=== PATIENT | female | born 1960 | race Caucasian/White ===

== ENCOUNTER 2019-03-03 01:20 | Emergency (ER) | payer MEDICAID, MEDICARE ==
[2019-03-03 02:21] LABS: #Eosinphils 0.1 thou/uL (0.0-0.7); #Lymphocytes 1.7 thou/uL (1.20-3.40); #Monocytes 0.8 thou/uL (0.11-0.59); #Neutrophils 15.9 thou/uL (1.40-6.50); %Basophils 0.3 % (0.0-1.0); %Eosinophils 0.7 % (0.0-10.0); %Lymphocytes 9.1 % (21.0-51.0); %Monocytes 4.1 % (0.0-10.0); %Neutrophils 85.8 % (42.0-75.0); Mean Corpuscular HGB CONC 35.2 g/dL (32.0-36.0); Mean Corpuscular Hemoglobin 30.7 pg (27.0-31.0); Mean Corpuscular Volume 87.2 fL (78.0-98.0); Mean Platelet Volume 6.6 fL (7.4-10.4); Platelet Count 265 thou/uL (130-400); RBC Distribution Width 12.3 % (11.5-14.5); Red Blood Cell (RBC) Count 3.91 mill/uL (4.20-5.40); White Blood Cell (WBC) Count 18.6 thou/uL (4.8-10.8)
[2019-03-03 02:41] LABS: ALT (SGPT) 11 U/L (8-55); AST (SGOT) 18 U/L (5-34); Alkaline Phosphatase 111 U/L (40-150); Anion Gap 16 mmol/L (10-20); BUN (Urea Nitrogen) 29 mg/dL (9.8-20.1); Bilirubin, Total 0.2 mg/dL (0.2-1.2); Calc. Creatinine Clearance 0 mL/min (70-130); Calcium 9.5 mg/dL (7.8-10.44); Carbon Dioxide 21 mmol/L (22-29); Chloride 107 mmol/L (98-107); Estimated GFR-MDRD 58; Glucose 138 mg/dL (70-105); Potassium 3.8 mmol/L (3.5-5.1); Sodium 140 mmol/L (136-145)
[2019-03-03] MEDS ORDERED: Ketorolac Tromethamine 30 MG/ML VIAL ONE (02:49)
[2019-03-03 04:28] LABS: Bilirubin Negative (Negative); Blood, Urine Negative (Negative); Clarity Clear (Clear); Glucose, Urine (Dipstick) Normal (Negative); Leukocyte Negative Leu/uL (Negative); Nitrite Negative (Negative); Protein, Urine (Dipstick) Negative (Neg-Trace); Urobilinogen Normal mg/dL (Less than 2)
--- NOTE | 2019-03-03 09:07 | CT ---
PRELIMINARY REPORT/[facility]/EMERGENCY AFTER HOURS PROCEDURE: EXAM: CT Lumbar Spine Without Contrast EXAM DATE/TIME: 03/03/2019 1:45 AM CLINICAL HISTORY: 58 years old, female; Low back pain; Patient HX: 58 y/o F presents to ED via EMS transport C/O sudden onset lower back pain. PT states that pain began suddenly while she was walking home from [place]. Denies known trauma, recent fall. Per EMS, vss en route. TECHNIQUE: Imaging protocol: Computed tomography images of the lumbar spine without contrast. COMPARISON: No relevant prior studies available. FINDINGS: Vertebrae: No fracture. Discs/Spinal canal/Neural foramina: No spinal stenosis. No neural foraminal narrowing. Kidneys and ureters: Nonobstructive nephrolithiasis left kidney. Soft tissues: Unremarkable. IMPRESSION: No fracture. Thank you for allowing us to participate in the care of your patient. Dictated and Authenticated by: Thad García MD 03/03/2019 1:56 AM Central Time ([place] & [place]) FINAL REPORT EMERGENCY AFTER HOURS LUMBAR SPINE CT SCAN WITHOUT IV CONTRAST: Date: 03/03/19 Time: 0146 hours HISTORY: Low back pain. FINDINGS/IMPRESSION: Bilateral nonobstructing renal calculi without evidence for acute obstruction. Generalized lumbar spondylosis. No fracture or dislocation. Report in agreement with preliminary report given on-call by Rolanda. POS: JARETT
--- NOTE | 2019-03-03 09:09 | CT ---
PRELIMINARY REPORT/[facility]/EMERGENCY AFTER HOURS PROCEDURE: EXAM: CT Head Without Contrast EXAM DATE/TIME: 03/03/2019 1:43 AM CLINICAL HISTORY: 58 years old, female; Altered mental status/memory loss; Patient HX: 58 y/o F presents to ED via EMS transport C/O sudden onset lower back pain. PT states that pain began suddenly while she was walking home from [facility]. Denies known trauma, recent fall. Per EMS, vss en route. TECHNIQUE: Imaging protocol: Computed tomography of the head without contrast. COMPARISON: No relevant prior studies available. FINDINGS: Brain: Volume loss and chronic small vessel ischemic change. Old infarction in the left basal ganglia . No brain edema. No intracranial hemorrhage. Ventricles: Normal. No ventriculomegaly. Bones/joints: Unremarkable. No acute fracture. Sinuses: Visualized sinuses are unremarkable. No fluid levels. Mastoid air cells: Visualized mastoid air cells are well aerated. Soft tissues: Unremarkable. IMPRESSION: No acute brain findings. Thank you for allowing us to participate in the care of your patient. Dictated and Authenticated by: Thad García MD 03/03/2019 1:52 AM Central Time ([place] & [place]) FINAL REPORT EMERGENCY AFTER HOURS BRAIN CT WITHOUT IV CONTRAST: Date: 03/03/19 Time: 0144 hours COMPARISON: 01/16/14. FINDINGS/IMPRESSION: Old left basal ganglia infarct changes. No mass or bleed. Report in agreement with preliminary report given on-call by Rolanda. POS: JARETT
== END 2019-03-03 04:56 | disposition home or self-care (01) ==
LOC: ERS 01:20
DX: M54.5 Low back pain (principal); Z86.73 Personal history of transient ischemic attack (TIA), and cerebral infarction without residual deficits; E78.00 Pure hypercholesterolemia, unspecified; I10 Essential (primary) hypertension; F41.9 Anxiety disorder, unspecified; F31.9 Bipolar disorder, unspecified
CPT/HCPCS: 36415; 70450; 72131; 80053; 81003; 85025; A4353; J1885

== ENCOUNTER 2019-03-03 15:01 | Emergency (ER) | payer MEDICARE, MEDICAID ==
[2019-03-03] MEDS ORDERED: Ketorolac Tromethamine 30 MG/ML VIAL ONE (16:41)
== END 2019-03-03 17:00 | disposition home or self-care (01) ==
LOC: ERS 15:01
DX: M54.5 Low back pain (principal); E78.5 Hyperlipidemia, unspecified; E78.00 Pure hypercholesterolemia, unspecified; I10 Essential (primary) hypertension; F41.9 Anxiety disorder, unspecified; F31.9 Bipolar disorder, unspecified; Z86.73 Personal history of transient ischemic attack (TIA), and cerebral infarction without residual deficits
CPT/HCPCS: 36415; 70450; 72131; 80053; 81003; 85025; 96372; 99283; A4353; J1885

== ENCOUNTER 2019-04-10 08:45 | Emergency (ER) | payer MEDICARE, MEDICAID ==
[2019-04-10] MEDS ORDERED: Ketorolac Tromethamine 30 MG/ML VIAL ONE (11:54)
--- NOTE | 2019-04-10 13:09 | RAD ---
PA AND LATERAL CHEST: Date: 04/10/19 HISTORY: Cough. FINDINGS: The heart size appears slightly enlarged. Mediastinal structures are unremarkable. Lungs are clear of infiltrates. There are arthritic changes of the spine. IMPRESSION: Minimal cardiomegaly. No acute findings. POS: [facility]
== END 2019-04-10 12:39 | disposition home or self-care (01) ==
LOC: ERS 08:45
DX: M53.3 Sacrococcygeal disorders, not elsewhere classified (principal); M25.561 Pain in right knee; E78.5 Hyperlipidemia, unspecified; E78.00 Pure hypercholesterolemia, unspecified; I10 Essential (primary) hypertension; F41.9 Anxiety disorder, unspecified; F31.9 Bipolar disorder, unspecified; Z79.899 Other long term (current) drug therapy; Z79.01 Long term (current) use of anticoagulants; Z86.73 Personal history of transient ischemic attack (TIA), and cerebral infarction without residual deficits
CPT/HCPCS: 71046; 96372; J1885

== ENCOUNTER 2019-04-16 14:55 | Emergency (ER) | payer MEDICAID, MEDICARE ==
[2019-04-16 15:52] LABS: Bilirubin Negative (Negative); Blood, Urine Negative (Negative); Clarity Clear (Clear); Glucose, Urine (Dipstick) Normal (Negative); Leukocyte 75 Leu/uL (Negative); Nitrite Negative (Negative); Protein, Urine (Dipstick) Negative (Neg-Trace); RBC/HPF 0-3 HPF (0-3); Squamous Epithelial 0-3 HPF (0-3); Urobilinogen 3 mg/dL (Less than 2)
[2019-04-16 15:53] LABS: Bacteria/HPF 1+ HPF (None Seen)
[2019-04-16] MEDS ORDERED: Acetaminophen 500 MG TAB ONE (16:02)
[2019-04-16 16:16] LABS: #Basophils 0.1 thou/uL (0.0-0.2); #Eosinphils 0.2 thou/uL (0.0-0.7); #Lymphocytes 2.3 thou/uL (1.20-3.40); #Monocytes 0.5 thou/uL (0.11-0.59); #Neutrophils 5.5 thou/uL (1.40-6.50); %Basophils 0.6 % (0.0-1.0); %Eosinophils 1.8 % (0.0-10.0); %Lymphocytes 26.9 % (21.0-51.0); %Neutrophils 64.7 % (42.0-75.0); Hemoglobin 11.4 g/dL (12.0-16.0); Mean Corpuscular HGB CONC 34.7 g/dL (32.0-36.0); Mean Corpuscular Hemoglobin 30.7 pg (27.0-31.0); Mean Corpuscular Volume 88.4 fL (78.0-98.0); Mean Platelet Volume 6.5 fL (7.4-10.4); Platelet Count 291 thou/uL (130-400); RBC Distribution Width 12.7 % (11.5-14.5); Red Blood Cell (RBC) Count 3.72 mill/uL (4.20-5.40); White Blood Cell (WBC) Count 8.5 thou/uL (4.8-10.8)
[2019-04-16 16:26] LABS: Amphetamine Not Detected (NotDetected); Barbiturates Screen Not Detected (NotDetected); Benzodiazepine Screen Not Detected (NotDetected); Cocaine Metabolite Screen Not Detected (NotDetected); Medtox Control Line Valid? VALID (VALID); Medtox Reader # READER 4; Methadone Not Detected (NotDetected); Methamphetamine Not Detected (NotDetected); Opiate Screen Not Detected (NotDetected); Oxycodone Screen Not Detected (NotDetected); Phencyclidine (PCP) Not Detected (NotDetected); THC/Cannabinoid Screen Not Detected (NotDetected); Tricyclic Screen Not Detected (NotDetected)
[2019-04-16 16:37] LABS: Acetaminophen Less than 6.0 mcg/mL (10.0-30.0); Alcohol Less than 10 mg/dL (Less than 10); CK (CPK) 125 U/L (29-168); Salicylate Less than 8.0 mg/dL (15.0-30.0)
[2019-04-16 16:38] LABS: ALT (SGPT) 12 U/L (8-55); AST (SGOT) 18 U/L (5-34); Albumin 3.8 g/dL (3.5-5.0); Alkaline Phosphatase 88 U/L (40-110); Anion Gap 11 mmol/L (10-20); BUN (Urea Nitrogen) 19 mg/dL (9.8-20.1); Bilirubin, Total 0.4 mg/dL (0.2-1.2); Calc. Creatinine Clearance 0 mL/min (70-130); Calcium 9.2 mg/dL (7.8-10.44); Carbon Dioxide 27 mmol/L (22-29); Chloride 105 mmol/L (98-107); Estimated GFR-MDRD 73; Globulin 2.7 g/dL (2.4-3.5); Glucose 110 mg/dL (70-105); Potassium 3.5 mmol/L (3.5-5.1); Protein, Total 6.5 g/dL (6.0-8.3); Sodium 139 mmol/L (136-145)
== END 2019-04-17 05:39 ==
LOC: ERS 14:55
DX: F32.9 Major depressive disorder, single episode, unspecified (principal); Z86.73 Personal history of transient ischemic attack (TIA), and cerebral infarction without residual deficits; E78.5 Hyperlipidemia, unspecified; E78.00 Pure hypercholesterolemia, unspecified; I10 Essential (primary) hypertension; F41.9 Anxiety disorder, unspecified; Z79.899 Other long term (current) drug therapy
CPT/HCPCS: 36415; 80053; 80306; 80307; 81003; 81015; 82550; 84443; 85025; 99285

== ENCOUNTER 2019-05-11 11:29 | Emergency (ER) | payer MEDICARE, MEDICAID ==
[2019-05-11] MEDS ORDERED: Ketorolac Tromethamine 30 MG/ML VIAL ONE (12:20)
[2019-05-11] MEDS ORDERED: Acetaminophen 500 MG TAB ONE (12:20)
== END 2019-05-11 12:45 | disposition home or self-care (01) ==
LOC: ERS 11:29
DX: G89.29 Other chronic pain (principal); M54.5 Low back pain; F41.9 Anxiety disorder, unspecified; F31.9 Bipolar disorder, unspecified; I10 Essential (primary) hypertension; E78.5 Hyperlipidemia, unspecified; Z86.73 Personal history of transient ischemic attack (TIA), and cerebral infarction without residual deficits; Z79.899 Other long term (current) drug therapy
CPT/HCPCS: 96372; 99283; J1885

== ENCOUNTER 2019-05-19 18:27 | Emergency (ER) | payer MEDICARE, MEDICAID ==
[2019-05-19] MEDS ORDERED: Adacel (T-DAP) 0.5 ML SYRINGE ONE (18:53)
[2019-05-19] MEDS ORDERED: Lidocaine 4% Cream 5 GM TUBE w/ Tegaderm ONE (18:53)
--- NOTE | 2019-05-19 19:19 | RAD ---
XR Knee Lt 4 View STANDARD HISTORY: Injury, left knee pain FINDINGS: No fracture or dislocation is identified. Degenerative changes are present.
--- NOTE | 2019-05-19 19:21 | RAD ---
XR Hand Lt 3 View STANDARD HISTORY: Injury, left hand pain FINDINGS: No fracture or dislocation is identified.
--- NOTE | 2019-05-19 21:20 | CT ---
HEAD CT WITHOUT CONTRAST: Date: 05/19/19 COMPARISON: 03/03/19. HISTORY: Pain. Fall. FINDINGS: Left frontal and left periorbital swelling and hematoma. Bilateral ocular lenses are appropriately lo cated. Both globes are intact. Retrobulbar fat is preserved. Symmetric attenuation of the optic nerve s and ocular rectus muscles. Adequate aeration of the sinuses and mastoid air cells. No evidence of an orbital wall or a calvarial fracture. No parenchymal hemorrhage or extra-axial hematoma. No midline shift. Basilar cisterns are patent. Age-appropriate atrophy. Remote insult involving the left external capsule and left kelly radiata. Additional white matter hy podensities due to chronic small vessel ischemic change. Remote white matter insult involving the ant erior right kelly radiata. IMPRESSION: 1. Left periorbital and scalp hematoma. 2. No intracranial post-traumatic sequelae. 3. Chronic changes as described above. POS: PPP
--- NOTE | 2019-05-19 21:30 | CT ---
CT CERVICAL SPINE WITHOUT CONTRAST: Date: 05/19/19 HISTORY: Fall. Trauma. Pain. FINDINGS: No craniocervical dissociation. Appropriate alignment of the lateral masses of C1 and C2, as well as the facets. Intact odontoid process. Cervical spine vertebral body height is maintained. There is no fracture. Soft tissue neck structures are unremarkable. Mass effect upon the posterior left supraglottic larynx due to medial deviation of the carotid artery. Upper mediastinum and lung apices are unremarkable. Varying degrees of central canal stenosis and foraminal narrowing on the basis of degenerative change . Cervical spine vertebral body height is maintained. There is no fracture. IMPRESSION: No fracture. POS: PPP
== END 2019-05-19 21:07 | disposition home or self-care (01) ==
LOC: ERS 18:27
DX: S01.81XA Laceration without foreign body of other part of head, initial encounter (principal); S80.02XA Contusion of left knee, initial encounter; S60.222A Contusion of left hand, initial encounter; E78.5 Hyperlipidemia, unspecified; I10 Essential (primary) hypertension; F31.9 Bipolar disorder, unspecified; Z86.73 Personal history of transient ischemic attack (TIA), and cerebral infarction without residual deficits; Z79.899 Other long term (current) drug therapy; W18.09XA Striking against other object with subsequent fall, initial encounter
CPT/HCPCS: 70450; 72125; 90715

== ENCOUNTER 2019-07-11 10:54 | Observation (INO) | payer MEDICARE, MEDICAID ==
--- NOTE | 2019-07-11 11:11 | CT ---
HEAD CT WITHOUT CONTRAST: HISTORY: Level 1 stroke. History of mini strokes. Left-sided weakness. Facial droop. COMPARISON: 05/19/2019. FINDINGS: Hemorrhage: No intraparenchymal hemorrhage or extra-axial hematoma. Brain parenchyma: Stable encephalomalacia involving the left external capsule and anterior kelly rad iata. There is stable ex vacuo dilatation of the frontal horn of the left lateral ventricle. Cortical montalvo-white matter differentiation is preserved. No midline shift. Basilar cisterns are paten t.Chronic small vessel ischemic changes of the white matter are noted and are unchanged. Ventricular system: Stable configuration of the ventricular system. Calvarium: Intact. Sinuses and mastoid air cells: Adequate aeration. IMPRESSION: No acute intracranial process. Results of the study discussed with Dr. Bautista 07/11/2019 at 11:10 AM. Code CR Transcribed Date/Time: 07/11/2019 11:13 AM
[2019-07-11 11:16] LABS: #Eosinphils 0.1 thou/uL (0.0-0.7); #Lymphocytes 2.1 thou/uL (1.20-3.40); #Monocytes 0.5 thou/uL (0.11-0.59); #Neutrophils 6.6 thou/uL (1.40-6.50); %Basophils 0.3 % (0.0-1.0); %Eosinophils 1.6 % (0.0-10.0); %Lymphocytes 22.7 % (21.0-51.0); %Monocytes 5.2 % (0.0-10.0); %Neutrophils 70.3 % (42.0-75.0); Hemoglobin 14.4 g/dL (12.0-16.0); Mean Corpuscular HGB CONC 33.3 g/dL (32.0-36.0); Mean Corpuscular Volume 87.1 fL (78.0-98.0); Platelet Count 312 thou/uL (130-400); RBC Distribution Width 11.4 % (11.5-14.5); Red Blood Cell (RBC) Count 4.96 mill/uL (4.20-5.40); White Blood Cell (WBC) Count 9.4 thou/uL (4.8-10.8)
[2019-07-11 11:18] LABS: PTT 29.1 SEC (22.9-36.1)
[2019-07-11 11:32] LABS: ALT (SGPT) 11 U/L (8-55); AST (SGOT) 16 U/L (5-34); Albumin 4.2 g/dL (3.5-5.0); Alkaline Phosphatase 108 U/L (40-110); Anion Gap 14 mmol/L (10-20); BUN (Urea Nitrogen) 18 mg/dL (9.8-20.1); Bilirubin, Total 0.5 mg/dL (0.2-1.2); Calc. Creatinine Clearance 0 mL/min (70-130); Calcium 9.6 mg/dL (7.8-10.44); Carbon Dioxide 28 mmol/L (22-29); Chloride 101 mmol/L (98-107); Estimated GFR-MDRD 66; Globulin 3.2 g/dL (2.4-3.5); Glucose 129 mg/dL (70-105); Potassium 3.8 mmol/L (3.5-5.1); Protein, Total 7.4 g/dL (6.0-8.3); Sodium 139 mmol/L (136-145)
[2019-07-11 12:11] LABS: CK (CPK) 62 U/L (29-168)
[2019-07-11] MEDS ORDERED: Nitrazine Tape 1 ROLL ONE (12:13)
[2019-07-11] MEDS ORDERED: Aspirin Chewable 81 MG TAB ONE (12:13)
[2019-07-11] MEDS ORDERED: Nitroglycerin 2% Ointment 1 INCH/1 GM Packet ONE ×2 (12:13→12:14)
[2019-07-11 13:23] LABS: Bacteria/HPF None Seen HPF (None Seen); Bilirubin Negative (Negative); Blood, Urine Negative (Negative); Clarity Clear (Clear); Glucose, Urine (Dipstick) Normal (Negative); Leukocyte 250 Leu/uL (Negative); Mucous/LPF Rare LPF (<2+); Nitrite Negative (Negative); Protein, Urine (Dipstick) Negative (Neg-Trace); RBC/HPF 0-3 HPF (0-3); Urobilinogen Normal mg/dL (Less than 2)
[2019-07-11] MEDS ORDERED: Iopamidol 370 76% 100 ML VIAL ONE (13:45)
[2019-07-11 14:17] VITALS: BMI 34.0
[2019-07-11] MEDS ORDERED: Ondansetron PF 4 MG/2 ML Vial IVP PRN (15:20)
[2019-07-11] MEDS ORDERED: Dextrose 50% Abboject 50 ML SYRINGE SLOW IVP PRN (15:22)
[2019-07-11] MEDS ORDERED: HumaLOG 300 UNITS/3 ML VIAL SC PRN (15:22)
[2019-07-11] MEDS ORDERED: Dextrose 5% in Water 1,000 ML IV PRN (15:22)
--- NOTE | 2019-07-11 15:56 | PDOC.HHP ---
Hospitalist HPI - History of Present Illness confusion History of Present Illness: The patient is a 58 year old female who presented with confusion around 10:00 am. Per significant other, they were on the way to visit some friends. As they were leaving with their bags packed, the significant other noticed that the patient was unsteady on her feet and was confused. When they met their friends the patient couldn't recognize two of her friends and was unable to state where she was. Her speech seemed normal however. He was concerned about a stroke and brought her to the emergency room. The patient complains that her left hand is numb and her left leg was numb as well. She reports these symptoms started today. She denied dizziness, lightheadedness, chest pain, shortness of breath. According to significant other, she has had some episodes of confusion in the past, but has no history of dementia. ED Course: Per ER attending, patient had left sided weakness and slurred speech that resolved after 30 minutes. EKG showed no acute disease. CT brain showed no acute disease. The patient was admitted for further workup. When she came to the floor, nurse noticed that her NIH was 5 and patient was unable to swallow water without coughing. Additional neuro workup ordered. Hospitalist ROS - Review of Systems Constitutional: denies: fever, chills Eyes: denies: pain, vision change ENT: denies: ear pain, ear discharge Respiratory: denies: cough, shortness of breath, pleuritic pain Cardiovascular: denies: chest pain, palpitations, orthopnea Gastrointestinal: denies: nausea, vomiting, abdominal pain, diarrhea, constipation Genitourinary: denies: dysuria, frequency, incontinence Musculoskeletal: denies: neck pain, shoulder pain Hospitalist History - Past Medical History Cardiac: reports: HTN Endocrine: reports: Diabetes - Past Surgical History Other Surgical History: Patient does not remember - Family History Other Family History: Brothers had strokes - Social History Smoking Status: Never smoker Alcohol: reports: None Drugs: reports: none Occupation: Used to work as home health aide. Lives with boyfriend, homelesss currently - Exam General Appearance: NAD, awake alert General - other findings: has some issues with word finding, slow speech Eye: PERRL, anicteric sclera ENT: normocephalic atraumatic, no oropharyngeal lesions Neck: supple, symmetric, no JVD, no thyromegaly Heart: RRR, no murmur, no gallops, no rubs Respiratory: CTAB, no wheezes, no rales, no ronchi Gastrointestinal: soft, non-tender, non-distended, normal bowel sounds Extremities: no cyanosis, no clubbing, no edema Skin: normal turgor, no lesions, no rashes Neurological: cranial nerve grossly intact, no focal deficits Neurological - other findings: 4/5 strength in LUE and LLE. Reflex hyperactive right leg, downgoing toe L Musculoskeletal: normal tone, normal strength, no muscle wasting Psychiatric: normal affect, normal behavior Psychiatric - other findings: Patient doesn't know president, states date is August 2001 Hospitalist Results - Labs Result Diagrams: 07/11/19 11:01 07/11/19 11:01 Lab results: WBC 9.4 thou/uL (4.8-10.8) 07/11/19 11:01 Hgb 14.4 g/dL (12.0-16.0) 07/11/19 11:01 Hct 43.2 % (36.0-47.0) 07/11/19 11:01 MCV 87.1 fL (78.0-98.0) 07/11/19 11:01 Plt Count 312 thou/uL (130-400) 07/11/19 11:01 Neutrophils % 70.3 % (42.0-75.0) 07/11/19 11:01 Sodium 139 mmol/L (136-145) 07/11/19 11:01 Potassium 3.8 mmol/L (3.5-5.1) 07/11/19 11:01 Chloride 101 mmol/L (98-107) 07/11/19 11:01 Carbon Dioxide 28 mmol/L (22-29) 07/11/19 11:01 BUN 18 mg/dL (9.8-20.1) 07/11/19 11:01 Creatinine 0.87 mg/dL (0.6-1.1) 07/11/19 11:01 Glucose 129 mg/dL (70-105) H 07/11/19 11:01 Calcium 9.6 mg/dL (7.8-10.44) 07/11/19 11:01 Total Bilirubin 0.5 mg/dL (0.2-1.2) 07/11/19 11:01 AST 16 U/L (5-34) 07/11/19 11:01 ALT 11 U/L (8-55) 07/11/19 11:01 Alkaline Phosphatase 108 U/L (40-110) 07/11/19 11:01 Creatine Kinase 62 U/L (29-168) 07/11/19 11:01 Troponin I Less than 0.010 ng/mL (< 0.028) 07/11/19 11:01 Serum Total Protein 7.4 g/dL (6.0-8.3) 07/11/19 11:01 Albumin 4.2 g/dL (3.5-5.0) 07/11/19 11:01 Urine Ketones Negative mg/dL (Negative) 07/11/19 13:00 Urine Blood Negative (Negative) 07/11/19 13:00 Urine Nitrite Negative (Negative) 07/11/19 13:00 Ur Leukocyte Esterase 250 Be/uL (Negative) A 07/11/19 13:00 Urine RBC 0-3 HPF (0-3) 07/11/19 13:00 Urine WBC 4-6 HPF (0-3) A 07/11/19 13:00 Ur Squamous Epith Cells 4-6 HPF (0-3) A 07/11/19 13:00 Urine Bacteria None Seen HPF (None Seen) 07/11/19 13:00 - EKG Interpretation EKG: no acute disease Hospitalist H&P A/P - Plan Plan: MRI brain: no acute infarct. Remote insult involving right thalamus and left lentiform exist. Chronic small vessel change of white matter CTA: no significant stenosis CT head: no acute disease This is a 58 year old female wtih hypertension, diabetes who presented with left sided numbness, confusion, dysarthria #Acute encephalopathy #Left sided weakness - MRI brain showing no acute infarct, remote insult on right thalamus? CTA shows no significant stenosis. CT head showed no acute disease - continue aspirin 81 mg daily, atorvastatin 40 mg daily, - neurology consult - ECHO -PT/OT/speech consult Hypertension - BP 166. Will keep BP on the higher side for now TYpe II diabetes - insulin sliding scale GERD - protonix Depression - continue lexapro Code status: full code
[2019-07-11] MEDS ORDERED: Lorazepam 0.5 MG TAB PO PRN (16:00)
--- NOTE | 2019-07-11 16:35 | CT ---
INDICATION: Aphasia COMPARISON: None TECHNIQUE: CT angiogram of the head and neck are performed in the axial plane. Three-dimensional refo rmatted images are submitted for interpretation. FINDINGS: CTA OF THE HEAD WITH AND WITHOUT CONTRAST: POSTCONTRAST CT OF BRAIN: Pathologic enhancement: No pathologic enhancement the brain. Postcontrast soft tissue neck CT: Sinuses: Adequate aeration. Orbits: Bilateral ocular lenses are appropriately located. Both globes are intact. Retrobulbar fat is preserved. Symmetric attenuation the optic nerves and ocular rectus muscles. Salivary glands:Symmetric attenuation of the subcutaneous mandibular glands. Symmetric fatty replacem ent of bilateral parotid glands Thyroid gland: Left thyroid lobe appears to be surgically absent. Correlate clinically. Lymph nodes: Nonspecific enlarged right level 2 lymph node measuring 1.0 x 1.2 cm. Paraspinal muscles: Symmetric attenuation of the sternocleidomastoid muscles. Appropriate attenuation of the paraspinal muscles. Cervical spine:Vertebral body height is maintained. No fracture. No significant central canal stenosi s or significant neural foraminal narrowing. Limited evaluation by technique. Upper mediastinum and lung apices: No acute abnormality. CTA OF THE NECK WITH CONTRAST: Aorta: Appropriate enhancement and luminal diameter Right carotid artery: The right carotid artery origin, common carotid artery, carotid bifurcation and internal carotid artery have appropriate enhancement and luminal diameter. Left carotid: The left carotid artery origin, common carotid artery, carotid bifurcation and internal carotid artery have appropriate enhancement and luminal diameter. Subclavian arteries:Patent and symmetric Vertebral arteries:Patent cervical vertebral arteries. Dominant left vertebral artery. CTA OF THE BRAIN: Intracranial internal carotid arteries:Appropriate enhancement and luminal diameter Anterior circulation: Appropriate and symmetric enhancement of the A1 and M1 segments. Proximal A2 se gments and proximal MCA branches have symmetric enhancement. Intracranial vertebral arteries: Appropriate enhancement and luminal diameter. Posterior circulation: Bilateral PICA artery origins have appropriate enhancement and luminal diamete r. Both vertebral arteries supply a normal caliber basilar artery. Bilateral P1 segments have appropriate enhancement and luminal diameter. IMPRESSION: 1. No hemodynamically significant stenosis, occlusion or aneurysmal formation. 2. Nonspecific enlarged right level 2 lymph node. Correlate clinically. Transcribed Date/Time: 07/11/2019 5:57 PM
--- NOTE | 2019-07-11 16:49 | MRI ---
Exam: Brain MRI without contrast HISTORY: Aphasia. Left-sided weakness. Evaluate for CVA. COMPARISON: 01/17/2014 FINDINGS: Calvarial marrow signal intensity: Appropriate T1 signal Gradient echo sequence: Hemosiderin deposition due to remote insult in the right thalamus in the left lentiform nucleus Brain parenchyma: Stable changes from remote insult. No parenchymal mass, mass effect or midline shif t. Age-appropriate atrophy. Cortical montalvo-white matter differentiation: Preserved Restricted diffusion: Central arterial flow voids are maintained. Absent restricted diffusion White matter signal intensities: T2, FLAIR white matter hyperintensities due to chronic small vessel ischemic changes Sinuses: Adequate aeration of the paranasal sinuses and mastoid air cells. IMPRESSION: 1. Absent restricted diffusion. No acute infarct 2. Remote insult involving the right thalamus and left lentiform exist. 3. Chronic small vessel ischemic changes of the white matter
[2019-07-11] MEDS: PROVENTIL INHALER 6.7 G (200 INHALATIONS) INH SCH (19:51)
[2019-07-11] MEDS: Gabapentin 300 MG CAP PO SCH (21:01)
--- NOTE | 2019-07-12 00:38 | CON ---
DATE OF CONSULTATION: 07/11/2019 CONSULTING PHYSICIAN: Hospitalist Service. IMPRESSION: 1. Panic attack. 2. Hyperlipidemia. 3. MRI suggests small vessel ischemic disease. PLAN: 1. Start aspirin 81 mg daily. 2. Continue statin. 3. Consider social service consult to see, if assistance can be had to assist in her living situation. HISTORY OF PRESENT ILLNESS: Ms. Marcial is a 58-year-old woman with past history of hyperlipidemia, asthma, who has been living with her boyfriend in one of the local motels. They report that they were essentially out of money and decided they need to get on the bus and leave at that point. They actually had no particular destination. Her boyfriend noted that she seemed a bit flustered and seemed to have all difficulty recalling what the game plan would be. While on the bus, she seemed to become unable to speak. They did not note any facial asymmetry or weakness in the extremities. He decided that she needed to be checked out medically. She continued to act in this fashion, being speechless for about an hour. Since then, she continues to appear confused and was reporting having difficulty with orientation when I assessed earlier. She denies a history of stroke-like symptoms. Since admission, she had a CT of the brain, which was normal. Her lab work was all in normal range. Her CT angiogram did not show any evidence for stenosis. Her MRI of the brain showed some old lacunar areas of infarction, but no acute abnormalities. PAST MEDICAL HISTORY: As listed above. ALLERGIES: CODEINE. SOCIAL HISTORY: No tobacco or drug use. FAMILY HISTORY: Noncontributory. REVIEW OF SYSTEMS: Ten-system review of systems is otherwise negative. PHYSICAL EXAMINATION: GENERAL: She is a somewhat overweight middle-aged woman, in no acute distress. VITAL SIGNS: Stable. She has been afebrile. HEENT: Pupils equal and reactive. Conjunctivae clear. Oropharynx clear. NECK: Supple. EXTREMITIES: No cyanosis or edema. NEUROLOGIC: She was awake and cooperative. She appears a bit anxious and jittery. Her speech was fluent and clear. She was slow to answer questions about her orientation, but did so correctly for me, but had recently been prompted by the speech therapist. There was no cranial nerve deficits. Motor exam showed good strength bilaterally. Sensations intact. No abnormal movements were seen. Gait was not tested. SUMMARY: A workup thus far has been negative. The overall story suggests a panic attack. I do not think that there is going to be any acute neurologic issue to deal with. Job ID: [id number]
[2019-07-12] MEDS: PROVENTIL INHALER 6.7 G (200 INHALATIONS) INH SCH ×3 (00:47→13:26)
[2019-07-12 04:50] LABS: #Basophils 0.1 thou/uL (0.0-0.2); #Eosinphils 0.3 thou/uL (0.0-0.7); #Lymphocytes 2.9 thou/uL (1.20-3.40); #Monocytes 0.5 thou/uL (0.11-0.59); #Neutrophils 5.5 thou/uL (1.40-6.50); %Basophils 0.8 % (0.0-1.0); %Eosinophils 2.7 % (0.0-10.0); %Lymphocytes 31.2 % (21.0-51.0); %Monocytes 5.8 % (0.0-10.0); %Neutrophils 59.5 % (42.0-75.0); Hemoglobin 13.5 g/dL (12.0-16.0); Mean Corpuscular HGB CONC 34.5 g/dL (32.0-36.0); Mean Corpuscular Hemoglobin 30.1 pg (27.0-31.0); Mean Corpuscular Volume 87.1 fL (78.0-98.0); Platelet Count 286 thou/uL (130-400); RBC Distribution Width 11.3 % (11.5-14.5); White Blood Cell (WBC) Count 9.3 thou/uL (4.8-10.8)
[2019-07-12 05:12] LABS: Anion Gap 13 mmol/L (10-20); BUN (Urea Nitrogen) 23 mg/dL (9.8-20.1); Calc. Creatinine Clearance 99 mL/min (70-130); Calcium 9.1 mg/dL (7.8-10.44); Carbon Dioxide 25 mmol/L (22-29); Chloride 104 mmol/L (98-107); Estimated GFR-MDRD 75; Glucose 118 mg/dL (70-105); Potassium 3.8 mmol/L (3.5-5.1); Sodium 138 mmol/L (136-145)
[2019-07-12] MEDS: Gabapentin 300 MG CAP PO SCH (08:37)
[2019-07-12] MEDS ORDERED: Escitalopram Oxalate 20 mg Tablet PO SCH (09:00)
[2019-07-12] MEDS ORDERED: Atorvastatin Calcium 40 MG TAB PO SCH (09:00)
[2019-07-12] MEDS ORDERED: Aripiprazole 10 MG TAB PO SCH (09:00)
[2019-07-12] MEDS ORDERED: Aspirin 81 mg Enteric Coated Tablet PO SCH (09:00)
[2019-07-12 11:15] VITALS: TEMP 98
[2019-07-12] MEDS ORDERED: Amlodipine 10 MG TAB PO SCH (14:45)
[2019-07-12] MEDS ORDERED: Lisinopril 20 MG TAB PO SCH (15:30)
[2019-07-12 15:31] VITALS: BP 167/99
--- NOTE | 2019-07-12 20:38 | DIS ---
DATE OF ADMISSION: 07/11/2019 DATE OF DISCHARGE: 07/12/2019 DISCHARGE DIAGNOSIS: Acute encephalopathy and left-sided weakness, possibly secondary to transient ischemic attack versus panic attack. CONSULTATIONS: Neurology with Dr. Jarod Cobb. PROCEDURES: None. BRIEF HISTORY OF PRESENT ILLNESS: This is a 58-year-old female with past medical history of unspecified mental illness, depression, diabetes, hypertension, who presented to the emergency room with confusion around 10:00 am. The patient's states they were evicted from their apartment and as they were leaving with their bags packed to their friend's house, the patient was very unsteady on her feet and was confused. She was unable to recognize two of her friends and was having difficulty with word finding. The patient also had complained that her left hand and her left leg were numb. The patient was brought to the emergency room for further evaluation. Upon presentation to the ER, the patient had a blood pressure of 119/69. The rest of her vitals were unremarkable. CT head showed no acute disease. EKG showed no acute disease. The patient was noted to have left-sided weakness and slurred speech per the ER attending on exam, which had resolved after 30 minutes. The patient was admitted for possible TIA. HOSPITAL COURSE: Acute encephalopathy and left-sided weakness, possibly secondary to TIA versus panic attack: On upon arrival to the floor, the patient had an NIH stroke scale of 5. She was noted to have weakness on the left arm and the left leg that was 4/5 compared to the right side. She underwent a CTA of her head and neck, which showed no significant stenosis. MRI of her brain showed a remote insult in her right thalamus and left lentiform. There was no acute infarction. The patient was continued on her aspirin and her statin. Neurology was consulted, who felt that this was more likely anxiety given her current social situation. The following day, the patient had no neurological deficits. She was seen by Physical Therapy who did not feel that she needed rehab. She was also seen by Speech and was placed on regular diet. The patient also had an echocardiogram done which showed no thrombus. She is advised to continue all her home medications as well as aspirin and follow up with her PCP in a week. Hypertension: Initially, the patient's blood pressure medications were held. On the day of discharge, her blood pressure increased to 165/105. She was resumed on her amlodipine, hydrochlorothiazide, and lisinopril. Type 2 diabetes: The patient takes metformin and glyburide at home. Depression: The patient states that she ran out of her Lexapro a few days prior to admission. She was given a new prescription for this. She was also continued on her Abilify, which she takes for unspecified mental illness. DISCHARGE PHYSICAL EXAMINATION: VITAL SIGNS: Temperature 98, heart rate 95, respiratory rate 12, O2 saturation 97% on room air, blood pressure 165 systolic over 105. The patient was given her home antihypertensive. GENERAL: The patient is alert, awake, oriented x3. She has some trouble with word finding and answering questions, but this is noted to be intermittent and chronic per family members. NEURO: Cranial nerves 2 through 12 were intact. She has intact sensation in all 4 extremities. She has full range of motion in all 4 extremities and 5/5 strength in all 4 extremities. Reflexes are 2+ throughout. She has negative Babinski sign. CVS: Regular rate and rhythm with no murmurs, rubs, or gallops. LUNGS: Clear to auscultation bilaterally. ABDOMEN: Positive bowel sounds, soft, nontender, nondistended. EXTREMITIES: No edema. PERTINENT LABORATORY DATA: CBC on 07/12: was unremarkable. BMP on 07/12: is unremarkable except for elevated glucose. LFTs; AST 16, ALT 11, alkaline phosphatase 108. Troponin I: less than 0.010 x3. UA: shows 4-6 white blood cells, 250 leukocyte esterase. PERTINENT IMAGING DATA: CT brain on 07/11:shows no acute disease. MRI brain on 07/11: shows absent restricted diffusion. No acute infarct. Remote insult involving the right thalamus and left lentiform. Chronic small-vessel ischemic changes of the white matter. CTA head and neck on 07/11:shows no hemodynamically significant stenosis or aneurysmal formation. ECHO : EF 55-60%, grade 1/3 diastolic dysfunction. Normal RV size and function. DISCHARGE CONDITION: Stable. ACTIVITY: As tolerated. DIET: Heart healthy, diabetic diet. DISCHARGE MEDICATIONS: New medications: Aspirin 81 mg p.o. daily. Old medications: 1. Albuterol inhaler 2 puffs inhalation q.6 hours. 2. Amlodipine 10 mg p.o. daily. 3. Gabapentin 300 mg p.o. daily. 4. Hydrochlorothiazide 12.5 mg p.o. daily. 5. Lisinopril 40 mg p.o. daily. 6. Metformin 500 mg p.o. b.i.d. 7. Metoprolol 25 mg p.o. daily. 8. Oxybutynin 5 mg p.o. b.i.d. 9. Lexapro 20 mg p.o. daily. 10. Hydroxyzine 10 mg p.o. q.8 hours. DISCHARGE INSTRUCTIONS: The patient to follow up with her PCP in a week and consider following up with mental health. Job ID: [id number] [facility]
--- NOTE | 2019-07-20 10:48 | EKG ---
Test Reason : STROKE Blood Pressure : / mmHG Vent. Rate : 062 BPM Atrial Rate : 062 BPM P-R Int : 218 ms QRS Dur : 068 ms QT Int : 374 ms P-R-T Axes : 043 -28 069 degrees QTc Int : 379 ms Sinus rhythm with 1st degree A-V block Voltage criteria for left ventricular hypertrophy Inferior infarct , age undetermined Abnormal ECG Confirmed by ELIZABETH DUKES, KASHIF Meadows ([id number]), scientific publications editor ESTEFANIA CROOK ([id number]) on 07/20/2019 10:48:03 AM Referred By: Confirmed By:KASHIF JOHNSON MD
== END 2019-07-12 15:00 | disposition home or self-care (01) ==
LOC: ERS 10:54 → 2SE 14:05
PROVIDERS: ADMIT Internal Medicine; ATTEND Internal Medicine
DX: G93.40 Encephalopathy, unspecified (principal); F41.0 Panic disorder [episodic paroxysmal anxiety]; I10 Essential (primary) hypertension; E11.9 Type 2 diabetes mellitus without complications; K21.9 Gastro-esophageal reflux disease without esophagitis; F32.9 Major depressive disorder, single episode, unspecified; E78.5 Hyperlipidemia, unspecified; Z79.84 Long term (current) use of oral hypoglycemic drugs; Z79.899 Other long term (current) drug therapy; Z88.5 Allergy status to narcotic agent
CPT/HCPCS: 70450; 70496; 70498; 70551; 80048; 80053; 82550; 82947; 82962 ×2; 84484 ×3; 85025 ×2; 85610; 85730; 90732; 93005; 93306; 94640 ×2; 97116; 99285; G0009; G0378 ×3; 36415; 36416; 81003; 81015; 90471; Q9967

== ENCOUNTER 2019-09-04 13:58 | Observation (INO) | payer MEDICARE, MEDICAID ==
[2019-09-04 14:40] LABS: #Basophils 0.1 thou/uL (0.0-0.2); #Eosinphils 0.3 thou/uL (0.0-0.7); #Lymphocytes 2.3 thou/uL (1.20-3.40); #Monocytes 0.6 thou/uL (0.11-0.59); #Neutrophils 5.5 thou/uL (1.40-6.50); %Basophils 0.6 % (0.0-1.0); %Eosinophils 3.5 % (0.0-10.0); %Lymphocytes 26.9 % (21.0-51.0); %Monocytes 6.3 % (0.0-10.0); %Neutrophils 62.7 % (42.0-75.0); Hemoglobin 12.3 g/dL (12.0-16.0); Mean Corpuscular HGB CONC 34.3 g/dL (32.0-36.0); Mean Corpuscular Hemoglobin 30.8 pg (27.0-31.0); Mean Corpuscular Volume 89.8 fL (78.0-98.0); Mean Platelet Volume 7.1 fL (7.4-10.4); Platelet Count 251 thou/uL (130-400); RBC Distribution Width 12.3 % (11.5-14.5); White Blood Cell (WBC) Count 8.7 thou/uL (4.8-10.8)
--- NOTE | 2019-09-04 14:56 | RAD ---
CHEST 1 VIEW PORTABLE: Date: 09/04/2019 HISTORY: Chest pain. COMPARISON: 04/10/2019. FINDINGS: Heart size is within normal limits. Postsurgical changes right humerus greater tuberosity region. No confluent pneumonia, overt edema, or pleural effusion. IMPRESSION: No significant acute intrathoracic disease. Atherosclerosis of aorta. Stable from prior study. POS: [facility]
[2019-09-04 15:06] LABS: ALT (SGPT) 11 U/L (8-55); AST (SGOT) 17 U/L (5-34); Albumin 3.7 g/dL (3.4-4.8); Alkaline Phosphatase 95 U/L (40-110); Anion Gap 12 mmol/L (10-20); BUN (Urea Nitrogen) 16 mg/dL (9.8-20.1); Bilirubin, Total 0.4 mg/dL (0.2-1.2); CK (CPK) 51 U/L (29-168); Calc. Creatinine Clearance 0 mL/min (70-130); Calcium 9.2 mg/dL (7.8-10.44); Carbon Dioxide 27 mmol/L (23-31); Chloride 105 mmol/L (98-107); Estimated GFR-MDRD 71; Globulin 2.5 g/dL (2.4-3.5); Glucose 123 mg/dL (80-115); Lipase 25 U/L (8-78); Potassium 3.7 mmol/L (3.5-5.1); Protein, Total 6.2 g/dL (6.0-8.3); Sodium 140 mmol/L (136-145)
[2019-09-04] MEDS ORDERED: Aspirin Chewable 81 MG TAB ONE (15:21)
[2019-09-04] MEDS ORDERED: Ondansetron ODT 4 MG TAB PO PRN (15:44)
[2019-09-04] MEDS ORDERED: Acetaminophen 650 MG Suppository PR PRN (15:44)
[2019-09-04] MEDS ORDERED: Nitroglycerin 0.4 MG TAB (25 Tab Bottle) PO PRN (15:44)
[2019-09-04] MEDS ORDERED: Acetaminophen 325 MG TAB PO PRN (15:44)
[2019-09-04] MEDS ORDERED: Ondansetron PF 4 MG/2 ML Vial IVP PRN (15:44)
--- NOTE | 2019-09-04 15:44 | PDOC.FPRHP ---
- History of Present Illness Chief Complaint: chest pain History of Present Illness: This is a 59yo F presenting to the ER today for a CC of chest pain that started last night. She describes the pain as pressure-like and radiates to her left arm and down. She reports the pain was 9/10 at its worst. She states that it woke her up throughout the night. The pain was intermittent but became constant this AM. She has never had a pain like this before. SHe denies any associated symptoms such as SOB, NVD, abd pain, palpitations, vision changes. SHe is normally very active and walks around her neighborhood with her almost daily. She states the only thing that has relieved her pain has been the nitro. She does have a PMH of stroke in 2017 - she does not have residual weakness. She is on clopidogrel and ASA. Patient also has a hx of DM and HTN. She has not been compliant with taking her medications. ED Course: nitro - Allergies/Adverse Reactions Allergies Allergy/AdvReac Type Severity Reaction Status Date / Time codeine Allergy Nausea Verified 09/04/19 17:21 - Home Medications Medication Instructions Recorded Confirmed Type Amlodipine Besylate [amLODIPine 10 mg PO DAILY 01/17/14 09/04/19 History Besylate] Gabapentin 300 mg PO BID 01/17/14 09/04/19 History Lisinopril 40 mg PO DAILY 01/17/14 09/04/19 History Metoprolol Tartrate 25 mg PO DAILY 01/17/14 09/04/19 History Oxybutynin Chloride 5 mg PO BID 01/17/14 09/04/19 History hydrOXYzine HCl 10 mg PO Q8HR PRN 01/17/14 09/04/19 History metFORMIN [Glucophage] 500 mg PO BID 01/17/14 09/04/19 History Hydrochlorothiazide 12.5 mg PO DAILY 07/11/19 09/04/19 History Aspirin [Ecotrin Low Strength] 81 mg PO DAILY #30 tab 07/12/19 09/04/19 Rx Atorvastatin Calcium [Lipitor] 40 mg PO DAILY #30 tab 07/12/19 09/04/19 Rx Escitalopram Oxalate [Lexapro] 20 mg PO DAILY #30 tab 07/12/19 09/04/19 Rx Clopidogrel Bisulfate [Clopidogrel] 75 g PO DAILY 09/04/19 09/04/19 History FLUoxetine HCl [Prozac] 40 mg PO DAILY 09/04/19 09/04/19 History traZODone HCl [Trazodone HCl] 25 mg PO HS 09/04/19 09/04/19 History - History PMHx: DM, HTN, HLD, hx of stroke, anxiety/depression, biplar PSHx: partial hysterectomy, cholecystectomy, tonsillectomy, appendectomy FHx: Father - MD age 64 Social: Denies alcohol, tobacco or drug use - Review of Systems General: denies: fever/chills, weight/appetite/sleep changes, night sweats, fatigue Eyes: denies: vision changes ENT: denies: nasal congestion, rhinorrhea Respiratory: denies: cough, congestion, shortness of breath, exercise intolerance Cardiovascular: reports: chest pain. denies: palpitation, edema, paroxysmal nocturnal dyspnea, orthopnea Gastrointestinal: denies: nausea, vomiting, diarrhea, constipation, abdominal pain Genitourinary: denies: dysuria Skin: denies: rashes, lesions Musculoskeletal: denies: pain, tenderness Neurological: denies: weakness - Vital signs BP: 113/56, Pulse: 61, Temp: 98.1 (Oral), Pain: 6, O2 sat: 95 on (Room Air), Time: 09/04/2019 14:08. BP: 120/62, MAP: 81, Pulse: 57, Resp: 14, Temp: 98.2 (Oral), Pain: 4, O2 sat: 96 on (Room Air), Time: 09/04/2019 15:31. Weight 82kg - Physical Exam Constitutional: NAD, awake, alert and oriented, well developed HEENT: normocephalic and atraumatic, PERRLA, EOMI, grossly normal vision, grossly normal hearing, MMM Neck: supple, FROM, trachea midline Chest: no lesions -Chest: TTP across ant chest Heart: RRR, normal S1/S2, no murmurs/rubs/gallops, pulses present, no edema Lungs: CTAB, no respiratory distress, good air movement, no rales/rhonchi, no wheezing Abdomen: soft, non-tender, bowel sounds present, no masses/distention Musculoskeletal: normal structure Neurological: no focal deficit Skin: no rash/lesions, good turgor, capillary refill <2 seconds Heme/Lymphatic: no unusual bruising or bleeding Psychiatric: normal mood and affect, good judgment and insight, intact recent and remote memory FMR H&P: Results - Labs Result Diagrams: 09/05/19 04:38 09/05/19 04:38 Lab results: WBC 8.7 thou/uL (4.8-10.8) 09/04/19 14:28 Hgb 12.3 g/dL (12.0-16.0) 09/04/19 14:28 Hct 35.9 % (36.0-47.0) L 09/04/19 14:28 MCV 89.8 fL (78.0-98.0) 09/04/19 14:28 Plt Count 251 thou/uL (130-400) 09/04/19 14:28 Neutrophils % 62.7 % (42.0-75.0) 09/04/19 14:28 Sodium 140 mmol/L (136-145) 09/04/19 14:28 Potassium 3.7 mmol/L (3.5-5.1) 09/04/19 14:28 Chloride 105 mmol/L (98-107) 09/04/19 14:28 Carbon Dioxide 27 mmol/L (23-31) 09/04/19 14:28 BUN 16 mg/dL (9.8-20.1) 09/04/19 14:28 Creatinine 0.82 mg/dL (0.6-1.1) 09/04/19 14:28 Glucose 123 mg/dL (80-115) H 09/04/19 14:28 Calcium 9.2 mg/dL (7.8-10.44) 09/04/19 14:28 Total Bilirubin 0.4 mg/dL (0.2-1.2) 09/04/19 14:28 AST 17 U/L (5-34) 09/04/19 14:28 ALT 11 U/L (8-55) 09/04/19 14:28 Alkaline Phosphatase 95 U/L (40-110) 09/04/19 14:28 Creatine Kinase 51 U/L (29-168) 09/04/19 14:28 Serum Total Protein 6.2 g/dL (6.0-8.3) 09/04/19 14:28 Albumin 3.7 g/dL (3.4-4.8) 09/04/19 14:28 Lipase 25 U/L (8-78) 09/04/19 14:28 - Radiology Interpretation Chest x-ray Status: report reviewed by me (stable from previous study) FMR H&P: A/P - Problem List (1) HTN (hypertension) Current Visit: Yes Status: Chronic Code(s): I10 - ESSENTIAL (PRIMARY) HYPERTENSION (2) Chest pain Current Visit: Yes Status: Acute Code(s): R07.9 - CHEST PAIN, UNSPECIFIED (3) Diabetes Current Visit: No Status: Chronic Code(s): E11.9 - TYPE 2 DIABETES MELLITUS WITHOUT COMPLICATIONS - Plan Typical Chest pain, ACS r/o Patient with pressure-like chest pain since last night, substernal radiating, and relieved with nitro. CXR nml. EKG non specific. HEART SCORE: 5 - Trops neg, will trend - Risk stratify with FLP, TSH, A1c - Stress in AM - will hold BB - Nitro PRN - admit to tele obs HTN - aware, will monitor. Restart home meds DM - aware, ACHS, mild SS HLD - on statin, f/u FLP Psych problems - Will continue meds Code: FULL Diet: HH, NPO at midnight DVT: SCDs (low patience score) PCP: MARIA TERESA Alegria Dispo: admit to tele obs for ACS r/o Case discussed with Dr. Mark Rae - Attending - Attending Attestation Date/Time: 09/05/19 0309 I personally evaluated the patient and discussed the management with Dr. Whitfield yesterday. I agree with the History, Examination, Assessment and Plan documented above with any addition or exceptions noted below.
[2019-09-04] MEDS ORDERED: Dextrose 5% in Water 1,000 ML IV PRN (15:48)
[2019-09-04] MEDS ORDERED: HumaLOG 300 UNITS/3 ML VIAL SC PRN (15:48)
[2019-09-04] MEDS ORDERED: Dextrose 50% Abboject 50 ML SYRINGE SLOW IVP PRN (15:48)
[2019-09-04 17:12] VITALS: BMI 33.8
[2019-09-04 17:43] LABS: Hemoglobin A1c 5.9 % (4.0-6.0)
[2019-09-04 18:00] LABS: Troponin I Less than 0.010 ng/mL (< 0.028)
[2019-09-04] MEDS ORDERED: hydrOXYzine 10 MG TAB PO PRN (18:21)
[2019-09-04] MEDS: Lactated Ringer's 1,000 ML IV SCH (18:41)
[2019-09-04] MEDS ORDERED: traZODone HCl 50 MG TAB PO SCH (21:00)
[2019-09-04] MEDS ORDERED: Atorvastatin Calcium 40 MG TAB PO SCH (21:00)
[2019-09-04] MEDS: Gabapentin 300 MG CAP PO SCH (21:02)
[2019-09-04] MEDS: Oxybutynin 5 MG TAB PO SCH (21:02)
[2019-09-04 21:25] LABS: Troponin I Less than 0.010 ng/mL (< 0.028)
[2019-09-05] MEDS: Lactated Ringer's 1,000 ML IV SCH ×2 (03:06→14:03)
[2019-09-05] MEDS: Nitroglycerin 2% Ointment 1 INCH/1 GM Packet TOP SCH (03:38)
[2019-09-05 04:52] LABS: #Basophils 0.1 thou/uL (0.0-0.2); #Eosinphils 0.4 thou/uL (0.0-0.7); #Lymphocytes 2.3 thou/uL (1.20-3.40); #Monocytes 0.5 thou/uL (0.11-0.59); #Neutrophils 3.5 thou/uL (1.40-6.50); %Basophils 0.8 % (0.0-1.0); %Eosinophils 6.5 % (0.0-10.0); %Lymphocytes 33.9 % (21.0-51.0); %Monocytes 7.3 % (0.0-10.0); %Neutrophils 51.6 % (42.0-75.0); Hemoglobin 11.7 g/dL (12.0-16.0); Mean Corpuscular HGB CONC 32.8 g/dL (32.0-36.0); Mean Corpuscular Hemoglobin 29.5 pg (27.0-31.0); Platelet Count 261 thou/uL (130-400); RBC Distribution Width 12.4 % (11.5-14.5); Red Blood Cell (RBC) Count 3.96 mill/uL (4.20-5.40); White Blood Cell (WBC) Count 6.8 thou/uL (4.8-10.8)
[2019-09-05 05:21] LABS: Anion Gap 9 mmol/L (10-20); BUN (Urea Nitrogen) 15 mg/dL (9.8-20.1); Calc. Creatinine Clearance 106 mL/min (70-130); Calcium 8.9 mg/dL (7.8-10.44); Carbon Dioxide 29 mmol/L (23-31); Cardiac Risk 4.4 (Less than 4.5); Chloride 106 mmol/L (98-107); Cholesterol 182 mg/dl (< 200 Desired); Estimated GFR-MDRD 77; Glucose 118 mg/dL (80-115); HDL Cholesterol 41 mg/dL (>60 Neg Risk); LDL Cholesterol, Calculated 109 mg/dL; Potassium 3.9 mmol/L (3.5-5.1); Sodium 140 mmol/L (136-145); Triglycerides 161 mg/dL (Less than 150)
--- NOTE | 2019-09-05 05:33 | PDOC.FM ---
- Subjective Subjective: Patient doing okay this morning. Reports intermittent left-sided sharp chest pain, somewhat reproducible with palpation. Discussed plans for stress test this morning, patient agreeable. - Objective Vital Signs & Weight: Vital Signs (12 hours) Temp Pulse Resp BP BP Pulse Ox 09/05/19 03:02 52 L 18 156/76 H 09/04/19 19:55 98.3 F 64 16 128/66 97 Weight Weight 86.664 kg I&O: 09/03/19 09/04/19 09/05/19 06:59 06:59 06:59 Intake Total 1720 Balance 1720 Result Diagrams: 09/05/19 04:38 09/05/19 04:38 EKG Reviewed by me: Yes (sinus surinder, 2nd degree type 1 at times) Phys Exam - Physical Examination Constitutional: NAD HEENT: moist MMs, sclera anicteric Neck: supple, full ROM Respiratory: no wheezing, clear to auscultation bilateral Cardiovascular: RRR, no significant murmur Gastrointestinal: soft, non-tender Musculoskeletal: no edema, pulses present Neurological: non-focal, moves all 4 limbs Lymphatic: no nodes Psychiatric: normal affect, A&O x 3 Skin: no rash, normal turgor Dx/Plan (1) Chest pain Code(s): R07.9 - CHEST PAIN, UNSPECIFIED Status: Acute (2) HTN (hypertension) Code(s): I10 - ESSENTIAL (PRIMARY) HYPERTENSION Status: Chronic (3) Diabetes Code(s): E11.9 - TYPE 2 DIABETES MELLITUS WITHOUT COMPLICATIONS Status: Chronic (4) HLD (hyperlipidemia) Code(s): E78.5 - HYPERLIPIDEMIA, UNSPECIFIED Status: Acute (5) History of CVA (cerebrovascular accident) Code(s): Z86.73 - PRSNL HX OF TIA (TIA), AND CEREB INFRC W/O RESID DEFICITS Status: Acute - Plan Plan: Patient is a 59F with PMHx of HTN, DM, HLD, prior CVA that presents with typical chest pain #Typical Chest pain, ACS r/o Patient with pressure-like chest pain since last night, substernal radiating, and relieved with nitro. CXR nml. EKG non specific. HEART SCORE: 5 - Trops neg x3 - Risk stratify: -triglycerides 161 -total chol 182 -LDL 109 -HDL 41 -A1C 5.9 -TSH 1.23 - Stress test today, hold BB - Nitro PRN - continue to monitor on telemetry #HTN - aware, will monitor. Restart home meds #DM - A1C 5.9 - ACHS, mild SS #HLD - on statin #Psych problems - Will continue meds #Hx of CVA -continue home asa and clopidogrel Code: FULL Diet: NPO for stress test DVT: SCDs (low patience score) PCP: MARIA TERESA Alegria Dispo: admitted to tele obs for ACS r/o; plan for stress test today
[2019-09-05] MEDS: Gabapentin 300 MG CAP PO SCH (08:27)
[2019-09-05] MEDS: Oxybutynin 5 MG TAB PO SCH (08:28)
[2019-09-05] MEDS ORDERED: Escitalopram Oxalate 20 mg Tablet PO SCH (09:00)
[2019-09-05] MEDS ORDERED: Clopidogrel Bisulfate 75 MG TAB PO SCH (09:00)
[2019-09-05] MEDS ORDERED: Aspirin 81 mg Enteric Coated Tablet PO SCH (09:00)
[2019-09-05] MEDS ORDERED: Hydrochlorothiazide 25 MG TAB PO SCH (09:00)
[2019-09-05] MEDS ORDERED: Amlodipine 10 MG TAB PO SCH (09:00)
[2019-09-05] MEDS ORDERED: Lisinopril 20 MG TAB PO SCH (09:00)
[2019-09-05] MEDS ORDERED: Aspirin 325 mg Enteric Coated Tablet PO SCH (09:00)
[2019-09-05] MEDS ORDERED: FLUoxetine HCl 20 MG CAP PO SCH (09:00)
[2019-09-05] MEDS ORDERED: Regadenoson 0.4 MG/5 ML SYRINGE ONE (12:00)
--- NOTE | 2019-09-05 12:00 | NM ---
Radionucleotide stress only myocardial perfusion scan with CT attenuation correction and SPECT imagin g Left ventricular wall motion evaluation and ejection fraction HISTORY: Chest pain. FINDINGS: Lexiscan protocol. Physiologic uptake of radiotracer throughout the left ventricular myocar dium. No focal perfusion defect evident. QGS analysis of gated SPECT images shows diminished motion of the septum. Ejection fraction calculate d at 56%. IMPRESSION: No scintigraphic evidence of ischemia. Normal LVEF.
[2019-09-05 12:20] VITALS: BP 143/66; TEMP 97.6
--- NOTE | 2019-09-05 15:26 | PRG ---
DATE OF SERVICE: 09/05/2019 ADDENDUM: Please add this as an addendum to the note of Dr. Masha Velez. Ms. Marcial had been admitted with chest pain. She just returned from her pharmaceutical stress test and results are still pending. She has been mostly chest pain free since being admitted. Her troponin levels are never elevated and remained less than 0.010. Her chemistry shows sodium of 140, potassium 3.7, chloride 105, bicarb 27, BUN 16, and creatinine 0.82. In discussing more history with Ms. Marcial, it is evident she was diagnosed with sleep apnea several years ago. She, however, could not tolerate the CPAP machine and quit using it. We have emphasized to her the importance of treating sleep apnea. She will follow up with Dr. Alicea in her clinic and arrange to have another sleep study and proceed from there. The rest of the workup will depend on results of her stress test. Job ID: [id number]
--- NOTE | 2019-09-06 13:21 | DIS ---
DATE OF ADMISSION: 09/04/2019 DATE OF DISCHARGE: 09/05/2019 ADMITTING RESIDENT: Chelsea Whitfield MD ADMITTING ATTENDING: Leo Flores MD DISCHARGE RESIDENT: Masha Velez MD DISCHARGE ATTENDING: Tam Hutson MD. CONSULTS: Walking programs. PROCEDURES: Stress test, nuclear medicine: No focal perfusion defect evident. Ejection fraction calculated at 56%. IMAGING: Chest x-ray: No significant acute intrathoracic disease. Atherosclerosis of aorta. Stable from prior study. PRIMARY DIAGNOSIS: Typical chest pain. SECONDARY DIAGNOSES: 1. Hypertension. 2. Diabetes. 3. Hyperlipidemia. 4. Psychiatric issues. 5. History of cerebrovascular accident. DISCHARGE MEDICATIONS: 1. Amlodipine 10 mg p.o. daily. 2. Aspirin 81 mg p.o. daily. 3. Atorvastatin 40 mg p.o. daily. 4. Clopidogrel 75 mg p.o. daily. 5. Lexapro 20 mg p.o. daily. 6. Prozac 40 mg p.o. daily. 7. Gabapentin 300 mg p.o. b.i.d. 8. Hydrochlorothiazide 12.5 mg p.o. daily. 9. Hydroxyzine 10 mg p.o. q.8 hours p.r.n. 10. Lisinopril 40 mg p.o. daily. 11. Metformin 500 mg p.o. b.i.d. 12. Metoprolol tartrate 25 mg p.o. daily. 13. Oxybutynin 5 mg p.o. b.i.d. 14. Trazodone 25 mg p.o. at bedtime. DISCONTINUED MEDICATIONS: 1. Insulin sliding scale. 2. Nitroglycerin transdermal n.p.o. 3. Zofran p.r.n. HISTORY OF PRESENT ILLNESS/HOSPITAL COURSE: The patient is a 59-year-old female with a past medical history of hyperlipidemia, hypertension, diabetes, and history of CVA, who presented to the ED with chest pain that started the night before. She reported the pain to be pressure-like that radiated up her left arm and the pain was rated to be 9/10 at its worst. She reports the pain has woken her up throughout the night. She had never had pain like this before, but denied any other associated symptoms. The patient was admitted to the hospital for a cardiac workup. The patient was found to have troponin negative x3, triglycerides of 161, total cholesterol 182, LDL cholesterol 109, HDL cholesterol 41, A1c 5.9, TSH 1.23. She had a stress test, see above. The patient was evaluated during the hospitalization and with some palpation, there was some reproducible chest pain. Her stress test was negative and it was discussed with the patient that her pain is likely musculoskeletal. She was evaluated on the day of discharge and found to be in stable condition. She was encouraged to continue a healthy diet and to follow up with her primary care physician. The patient was also encouraged during this hospitalization to f/u sleep study for YONG. DISPOSITION: Stable. DISCHARGE INSTRUCTIONS: 1. Location: Home. 2. Diet: Heart healthy, diabetic diet, no added salt diet. 3. Activity: As tolerated. 4. Followup: With Dr. Nhi Alicea within 7 days. Job ID: [id number] MTDD
--- NOTE | 2019-09-07 15:49 | EKG ---
Test Reason : Blood Pressure : / mmHG Vent. Rate : 058 BPM Atrial Rate : 058 BPM P-R Int : 274 ms QRS Dur : 086 ms QT Int : 398 ms P-R-T Axes : 028 -30 087 degrees QTc Int : 390 ms Sinus bradycardia with 1st degree A-V block Left axis deviation Voltage criteria for left ventricular hypertrophy T wave abnormality, consider lateral ischemia Abnormal ECG Confirmed by TALIA DUKES, JUVE ([id number]), continuity editor ESTEFANIA CROOK ([id number]) on 09/07/2019 3:49:14 PM Referred By: Confirmed By:JUVE MELGAR MD
== END 2019-09-05 14:09 | disposition home or self-care (01) ==
LOC: ERS 13:58 → ERHOLD 15:24 → 2SW 16:39
PROVIDERS: ADMIT Family Medicine; ATTEND Family Medicine
DX: R07.9 Chest pain, unspecified (principal); I10 Essential (primary) hypertension; E11.9 Type 2 diabetes mellitus without complications; E78.5 Hyperlipidemia, unspecified; F41.9 Anxiety disorder, unspecified; F31.9 Bipolar disorder, unspecified; Z79.82 Long term (current) use of aspirin; Z79.899 Other long term (current) drug therapy; Z86.73 Personal history of transient ischemic attack (TIA), and cerebral infarction without residual deficits; Z88.5 Allergy status to narcotic agent
CPT/HCPCS: 71045; 78452; 80048; 80061; 82550; 82962 ×2; 83036; 83690; 84484 ×2; 85025; 93005; 93017; 96360; 96361 ×2; 99285; A9500; G0378 ×3; 36415; 36416; 80053; 84443; J2785

== ENCOUNTER 2019-10-27 22:01 | Emergency (ER) | payer MEDICARE, MEDICAID, OTHER ==
--- NOTE | 2019-10-27 22:46 | RAD ---
Exam: Chest one view HISTORY:Cough Comparison: 09/04/2019 FINDINGS: Cardiac silhouette: Normal Aorta: Unremarkable Pulmonary vessels: Normal Costophrenic angles: Clear LUNGS: No masses or consolidation. Pneumothorax: None Osseous abnormalities: None IMPRESSION: No acute cardiopulmonary process.
[2019-10-27 22:47] LABS: #Basophils 0.1 thou/uL (0.0-0.2); #Eosinphils 0.8 thou/uL (0.0-0.7); #Lymphocytes 2.5 thou/uL (1.20-3.40); #Monocytes 0.5 thou/uL (0.11-0.59); #Neutrophils 5.4 thou/uL (1.40-6.50); %Basophils 0.8 % (0.0-1.0); %Eosinophils 8.5 % (0.0-10.0); %Monocytes 5.7 % (0.0-10.0); Hemoglobin 13.3 g/dL (12.0-16.0); Mean Corpuscular HGB CONC 33.7 g/dL (32.0-36.0); Mean Corpuscular Hemoglobin 30.8 pg (27.0-31.0); Mean Corpuscular Volume 91.5 fL (78.0-98.0); Mean Platelet Volume 7.1 fL (7.4-10.4); Platelet Count 295 thou/uL (130-400); RBC Distribution Width 12.1 % (11.5-14.5); White Blood Cell (WBC) Count 9.3 thou/uL (4.8-10.8)
[2019-10-27 23:03] LABS: ALT (SGPT) 14 U/L (8-55); AST (SGOT) 17 U/L (5-34); Albumin 3.9 g/dL (3.4-4.8); Alkaline Phosphatase 117 U/L (40-110); Anion Gap 13 mmol/L (10-20); BUN (Urea Nitrogen) 19 mg/dL (9.8-20.1); Bilirubin, Total Less than 0.2 mg/dL (0.2-1.2); Calc. Creatinine Clearance 0 mL/min (70-130); Calcium 9.4 mg/dL (7.8-10.44); Carbon Dioxide 29 mmol/L (23-31); Chloride 103 mmol/L (98-107); Estimated GFR-MDRD 62; Glucose 171 mg/dL (80-115); Potassium 3.7 mmol/L (3.5-5.1); Protein, Total 6.9 g/dL (6.0-8.3); Sodium 141 mmol/L (136-145)
[2019-10-28 17:57] LABS: SARS-CoV-2 MS2 Positive; SARS-CoV-2 N Gene Negative; SARS-CoV-2 S Gene Negative; SARS-CoV-2 orf1ab Negative
--- NOTE | 2019-10-30 13:25 | EKG ---
Test Reason : CP Blood Pressure : / mmHG Vent. Rate : 070 BPM Atrial Rate : 070 BPM P-R Int : 260 ms QRS Dur : 088 ms QT Int : 394 ms P-R-T Axes : 038 -23 046 degrees QTc Int : 425 ms Sinus rhythm with 1st degree A-V block Minimal voltage criteria for LVH, may be normal variant Nonspecific T wave abnormality Abnormal ECG Confirmed by TIBURCIO MARIANO ([id number]), video editor NAMRATA CABRERA ([id number]) on 10/30/2019 1:25:37 PM Referred By: Confirmed By:TIBURCIO MARIANO
== END 2019-10-27 23:11 | disposition home or self-care (01) ==
LOC: ERS 22:01
DX: R05 Cough (principal); Z20.828 Contact with and (suspected) exposure to other viral communicable diseases; E11.65 Type 2 diabetes mellitus with hyperglycemia; I10 Essential (primary) hypertension; E78.00 Pure hypercholesterolemia, unspecified; F31.9 Bipolar disorder, unspecified; F41.9 Anxiety disorder, unspecified; E78.5 Hyperlipidemia, unspecified; Z79.899 Other long term (current) drug therapy; Z86.73 Personal history of transient ischemic attack (TIA), and cerebral infarction without residual deficits; Z79.84 Long term (current) use of oral hypoglycemic drugs; Z79.82 Long term (current) use of aspirin
CPT/HCPCS: 71045; 80053; 83605; 84484; 85025; 93005; 94760; 99284; U0002; 87635; U0003

== ENCOUNTER 2019-12-15 08:36 | Observation (INO) | payer MEDICARE, MEDICAID ==
[2019-12-15 09:15] LABS: #Eosinphils 0.6 thou/uL (0.0-0.7); #Lymphocytes 1.9 thou/uL (1.20-3.40); #Monocytes 0.5 thou/uL (0.11-0.59); %Basophils 0.5 % (0.0-1.0); %Eosinophils 6.9 % (0.0-10.0); %Lymphocytes 21.2 % (21.0-51.0); %Monocytes 5.9 % (0.0-10.0); %Neutrophils 65.6 % (42.0-75.0); Hemoglobin 12.7 g/dL (12.0-16.0); Mean Corpuscular HGB CONC 34.7 g/dL (32.0-36.0); Mean Corpuscular Hemoglobin 31.2 pg (27.0-31.0); Mean Corpuscular Volume 89.9 fL (78.0-98.0); Mean Platelet Volume 7.1 fL (7.4-10.4); Platelet Count 245 thou/uL (130-400); RBC Distribution Width 11.9 % (11.5-14.5); Red Blood Cell (RBC) Count 4.05 mill/uL (4.20-5.40); White Blood Cell (WBC) Count 9.1 thou/uL (4.8-10.8)
--- NOTE | 2019-12-15 09:24 | RAD ---
Exam: Chest one view HISTORY:Dyspnea. Comparison: 10/27/2019 FINDINGS: Cardiac silhouette: Normal Aorta: Unremarkable Pulmonary vessels: Normal Costophrenic angles: Clear LUNGS: No masses or consolidation. Pneumothorax: None Osseous abnormalities: None IMPRESSION: No acute cardiopulmonary process.
[2019-12-15] MEDS ORDERED: Morphine 4 MG/ML VIAL ONE (09:29)
[2019-12-15] MEDS ORDERED: Ondansetron PF 4 MG/2 ML Vial ONE (09:29)
[2019-12-15 09:39] LABS: ALT (SGPT) 23 U/L (8-55); AST (SGOT) 20 U/L (5-34); Albumin 3.5 g/dL (3.4-4.8); Alkaline Phosphatase 108 U/L (40-110); Anion Gap 12 mmol/L (10-20); BUN (Urea Nitrogen) 19 mg/dL (9.8-20.1); Bilirubin, Total 0.3 mg/dL (0.2-1.2); Calc. Creatinine Clearance 0 mL/min (70-130); Calcium 8.7 mg/dL (7.8-10.44); Carbon Dioxide 27 mmol/L (23-31); Chloride 103 mmol/L (98-107); Estimated GFR-MDRD 66; Globulin 2.9 g/dL (2.4-3.5); Glucose 239 mg/dL (80-115); Protein, Total 6.4 g/dL (6.0-8.3); Sodium 138 mmol/L (136-145)
[2019-12-15] MEDS ORDERED: Ipratropium Oral Inhaler INH SCH (10:15)
[2019-12-15] MEDS ORDERED: Nitroglycerin 2% Ointment 1 INCH/1 GM Packet ONE (10:16)
--- NOTE | 2019-12-15 10:44 | CT ---
Exam: CT angiogram of the chest HISTORY: Hyperlipidemia. Hypertension. Asthma. Acute shortness of breath. COMPARISON: None TECHNIQUE: CT angiogram of the chest is performed in the axial plane. Three-dimensional reformatted i mages are submitted for interpretation FINDINGS: Mediastinum: No mass, lymphadenopathy or hematoma. HEART: Normal size. No significant pericardial fluid. Aorta: No aneurysm or dissection Upper solid abdominal viscera: No abnormality enhancement. Trachea and central bronchi: Patent Pleural spaces: No effusion Lung parenchyma: Minimal dependent atelectatic changes. No masses or consolidation. Pneumothorax: None Osseous structures: No lytic or blastic lesions Pulmonary arteries: Adequate contrast opacification pulmonary arterial system to the level of segment al arteries. No filling defect to suggest pulmonary embolism IMPRESSION:No evidence of pulmonary artery embolism to the level of segmental arteries.
[2019-12-15] MEDS ORDERED: hydrALAZINE 20 MG/ML VIAL ONE (11:40)
[2019-12-15] MEDS ORDERED: Acetaminophen 500 MG TAB ONE (13:07)
[2019-12-15] MEDS ORDERED: Iopamidol-370 76% 500 ML 1 ML ONE (13:30)
--- NOTE | 2019-12-15 14:02 | PDOC.FPRHP ---
- History of Present Illness Chief Complaint: leg pain, SOB History of Present Illness: 59 yo F with hx of CVA x3 presents to ER for SOB and lower extremity swelling and pain. Her RLE pain is bothering her the most, she is very anxious and difficult to obtain history b/c she is highly tearful and anxious and states "she can't remember" when I ask her to expand on her statements. RLE swelling and pain started yesterday. Denies trauma, smoking, no hx of blood clots in herself or family. Feels SOB but no chest pain, cough, fever, chills, diarrhea, changes in smell/taste. Echo in Jul 2019 with EF 55% and 1/3 diastolic dysfx, otherwise normal. BNP 143 in ER with normal CXR. No COV19 or sick contact exposure. No recent travel. Per ER PA patient had high BPs in ER with SBP >200. Patient states didn't take her BP meds this morning b/c she "didn't feel well." She wasn't able to tell me anything more than this without crying. In the ER CTA was negative for PE. EKG unremarkable. BNP 143 with normal CXR as well. Non hypoxic on room air. Received meds listed below with some improvement in pain but right calf still bothering her. ED Course: 1g tylenol, 20mg IV hydralazine, nitro paste, 2 puff atrovent, 4mg zofran, 4mg morphine - Allergies/Adverse Reactions Allergies Allergy/AdvReac Type Severity Reaction Status Date / Time codeine Allergy Intermediate Nausea Verified 12/15/19 15:39 - Home Medications Medication Instructions Recorded Confirmed Type Amlodipine Besylate [amLODIPine 10 mg PO DAILY 01/17/14 12/15/19 History Besylate] Gabapentin 300 mg PO BID 01/17/14 12/15/19 History Lisinopril 40 mg PO DAILY 01/17/14 12/15/19 History Metoprolol Tartrate 25 mg PO DAILY 01/17/14 12/15/19 History Oxybutynin Chloride 5 mg PO BID 01/17/14 12/15/19 History hydrOXYzine HCl 10 mg PO Q8HR PRN 01/17/14 12/15/19 History metFORMIN [Glucophage] 500 mg PO BID 01/17/14 12/15/19 History Hydrochlorothiazide 12.5 mg PO DAILY 07/11/19 12/15/19 History Aspirin [Ecotrin Low Strength] 81 mg PO DAILY #30 tab 07/12/19 12/15/19 Rx Atorvastatin Calcium [Lipitor] 40 mg PO DAILY #30 tab 07/12/19 12/15/19 Rx Escitalopram Oxalate [Lexapro] 20 mg PO DAILY #30 tab 07/12/19 12/15/19 Rx Clopidogrel Bisulfate [Clopidogrel] 75 g PO DAILY 09/04/19 12/15/19 History FLUoxetine HCl [Prozac] 40 mg PO DAILY 09/04/19 12/15/19 History traZODone HCl [Trazodone HCl] 25 mg PO HS 09/04/19 12/15/19 History - History PMHx: Asthma, anxiety, HTN, panic attacks PSHx: Hysterectomy, cholecystectomy, diabetic neuropathy, insomnia, right meniscal tear FHx: Denies fam hx of blood clots, unremarkable otherwise Social: Denies history or current use of TAD - Review of Systems General: denies: fever/chills, weight/appetite/sleep changes ENT: denies: nasal congestion, rhinorrhea Respiratory: reports: shortness of breath. denies: cough, congestion Cardiovascular: reports: edema. denies: chest pain, orthopnea Gastrointestinal: denies: nausea, vomiting, diarrhea, constipation, abdominal pain Skin: reports: rashes. denies: lesions Musculoskeletal: reports: pain, tenderness, swelling. denies: stiffness, arthritis/arthralgias Neurological: denies: weakness Psychological: reports: anxiety - Vital signs BP: 156/92, MAP: 113, Pulse: 66, Resp: 18, Temp: 98.5 (Oral), Pain: 8, O2 sat: 96 on (Room Air), Time: 12/15/2019 13:02. - Physical Exam Constitutional: awake, alert and oriented, well developed HEENT: normocephalic and atraumatic, PERRLA, EOMI, conjunctiva clear, no scleral icterus Neck: supple, FROM, trachea midline Heart: RRR, normal S1/S2, no murmurs/rubs/gallops Lungs: CTAB, no respiratory distress, good air movement Abdomen: soft, non-tender, bowel sounds present Musculoskeletal: normal structure, normal tone, ROM grossly normal Neurological: no focal deficit, CN II-XII intact -Heme/Lymphatic: right calf swelling, tender to palpation diffusely, no palpable cord pulses intact, good cap refill in toes, warm to touch but no erythema, able to move but difficult b/o pain -Psychiatric: anxious affect FMR H&P: Results - Labs Result Diagrams: 12/15/19 09:05 12/15/19 09:05 Lab results: WBC 9.1 thou/uL (4.8-10.8) 12/15/19 09:05 Hgb 12.7 g/dL (12.0-16.0) 12/15/19 09:05 Hct 36.4 % (36.0-47.0) 12/15/19 09:05 MCV 89.9 fL (78.0-98.0) 12/15/19 09:05 Plt Count 245 thou/uL (130-400) 12/15/19 09:05 Neutrophils % 65.6 % (42.0-75.0) 12/15/19 09:05 Sodium 138 mmol/L (136-145) 12/15/19 09:05 Potassium 4.0 mmol/L (3.5-5.1) 12/15/19 09:05 Chloride 103 mmol/L (98-107) 12/15/19 09:05 Carbon Dioxide 27 mmol/L (23-31) 12/15/19 09:05 BUN 19 mg/dL (9.8-20.1) 12/15/19 09:05 Creatinine 0.87 mg/dL (0.6-1.1) 12/15/19 09:05 Glucose 239 mg/dL (80-115) H 12/15/19 09:05 Calcium 8.7 mg/dL (7.8-10.44) 12/15/19 09:05 Total Bilirubin 0.3 mg/dL (0.2-1.2) 12/15/19 09:05 AST 20 U/L (5-34) 12/15/19 09:05 ALT 23 U/L (8-55) 12/15/19 09:05 Alkaline Phosphatase 108 U/L (40-110) 12/15/19 09:05 B-Natriuretic Peptide 143.5 pg/mL (0-100) H 12/15/19 09:05 Serum Total Protein 6.4 g/dL (6.0-8.3) 12/15/19 09:05 Albumin 3.5 g/dL (3.4-4.8) 12/15/19 09:05 - Radiology Interpretation CT scan - chest Status: report reviewed by me Additional comment: Negative for acute processes including PE Chest x-ray Status: image reviewed by me, report reviewed by me Additional comment: no acute cardiopulmonary processes FMR H&P: A/P - Problem List (1) Hypertensive urgency Current Visit: Yes Status: Acute Code(s): I16.0 - HYPERTENSIVE URGENCY (2) Calf swelling Current Visit: Yes Status: Acute Code(s): M79.89 - OTHER SPECIFIED SOFT TISSUE DISORDERS (3) HLD (hyperlipidemia) Current Visit: No Status: Acute Code(s): E78.5 - HYPERLIPIDEMIA, UNSPECIFIED (4) History of CVA (cerebrovascular accident) Current Visit: No Status: Acute Code(s): Z86.73 - PRSNL HX OF TIA (TIA), AND CEREB INFRC W/O RESID DEFICITS (5) Acute anterior circulation TIA Current Visit: No Status: Chronic Code(s): G45.8 - OTH TRANSIENT CEREBRAL ISCHEMIC ATTACKS AND RELATED SYND (6) HTN (hypertension) Current Visit: No Status: Chronic Code(s): I10 - ESSENTIAL (PRIMARY) HYPERTENSION (7) Anxiety Current Visit: Yes Status: Acute Code(s): F41.9 - ANXIETY DISORDER, UNSPECIFIED (8) Diabetes Current Visit: No Status: Chronic Code(s): E11.9 - TYPE 2 DIABETES MELLITUS WITHOUT COMPLICATIONS - Plan 59 yo F admitted for hypertensive urgency and DVT r/o #Hypertensive urgency -Continue BP monitoring -Continue home regimen with IV antihypertensives available #RLE swelling, DVT r/o -Obtain dopplers stat -Ddimer elevated at 0.5 -CTA neg for PE #cHTN -home regimen, adjust as needed -consider w/u for causes of secondary HTN since on 3 antihypertensives -can f/u in clinic for this #Anxiety -home regimen #Insomnia -home regimen #Hx of CVA -stable neuro exam -home meds #HLD -home meds Code: DNR PCP: MARIA TERESA Dispo: <2 midnights Admit: Tele/Obs Addendum - Attending - Attending Attestation Date/Time: 12/15/19 5746 I personally evaluated the patient and discussed the management with Dr. Duvall. I agree with the History, Examination, Assessment and Plan documented above with any addition or exceptions noted below. Patient here with acute complaint of leg pain and swelling. Denies trauma. She also has elevated BP. We are admitting to obs for DVT r/o and HTN urgency. Obtain BP control and obtain LE dopplers. Further mgmt pending that result.
[2019-12-15] MEDS ORDERED: Ondansetron ODT 4 MG TAB SL PRN (15:22)
[2019-12-15] MEDS ORDERED: Ondansetron PF 4 MG/2 ML Vial IVP PRN (15:22)
[2019-12-15] MEDS ORDERED: Sodium Chloride 0.9% 1,000 ML IV SCH (15:22)
[2019-12-15 16:03] VITALS: BMI 40.4
[2019-12-15 16:05] LABS: Hemoglobin A1c 6.5 % (4.0-6.0)
--- NOTE | 2019-12-15 16:35 | ULT ---
ULTRASOUND DOPPLER DUPLEX VENOUS RIGHT LOWER EXTREMITY: DATE: 12/15/2019 HISTORY: 59-year-old female with right lower extremity pain TECHNIQUE: Grayscale, color-flow, and spectral analysis, of the right common femoral, profunda femoral, greater saphenous, femoral, popliteal, and posterior tibial, veins. FINDINGS: Unable to compress common femoral vein and greater saphenous vein appropriately to demonstrate comple te collapse because of patient pain. Blood flow is demonstrated in these veins by Doppler. There is complete compressibility, and flow demonstrated by Doppler, in the femoral, profunda femoral , popliteal, and posterior tibial, veins. There is a 3.5 x 2 x 1 cm cystic lesion in the popliteal fossa. IMPRESSION: 1) no occlusive deep venous thrombosis. 2) unable to completely evaluate for nonocclusive thrombosis in the right common femoral and greater saphenous veins, because of patient pain and tenderness. 3) Mittal's cyst
[2019-12-15] MEDS ORDERED: hydrOXYzine 10 MG TAB PO PRN (19:15)
[2019-12-15] MEDS: Gabapentin 300 MG CAP PO SCH (20:35)
[2019-12-15] MEDS: metFORMIN 500 MG TAB PO SCH (20:35)
[2019-12-15] MEDS ORDERED: traZODone HCl 50 MG TAB PO SCH (21:00)
[2019-12-16 03:56] LABS: #Eosinphils 0.5 thou/uL (0.0-0.7); #Lymphocytes 1.9 thou/uL (1.20-3.40); #Monocytes 0.5 thou/uL (0.11-0.59); #Neutrophils 5.3 thou/uL (1.40-6.50); %Basophils 0.4 % (0.0-1.0); %Eosinophils 6.3 % (0.0-10.0); %Lymphocytes 23.3 % (21.0-51.0); %Monocytes 6.5 % (0.0-10.0); %Neutrophils 63.5 % (42.0-75.0); Hemoglobin 11.7 g/dL (12.0-16.0); Mean Corpuscular HGB CONC 35.3 g/dL (32.0-36.0); Mean Corpuscular Hemoglobin 31.8 pg (27.0-31.0); Mean Corpuscular Volume 90.1 fL (78.0-98.0); Mean Platelet Volume 7.2 fL (7.4-10.4); Platelet Count 216 thou/uL (130-400); RBC Distribution Width 11.8 % (11.5-14.5); Red Blood Cell (RBC) Count 3.69 mill/uL (4.20-5.40); White Blood Cell (WBC) Count 8.3 thou/uL (4.8-10.8)
[2019-12-16 04:21] LABS: Anion Gap 12 mmol/L (10-20); BUN (Urea Nitrogen) 18 mg/dL (9.8-20.1); Calc. Creatinine Clearance 111 mL/min (70-130); Carbon Dioxide 25 mmol/L (23-31); Chloride 105 mmol/L (98-107); Estimated GFR-MDRD 71; Glucose 125 mg/dL (80-115); Potassium 3.9 mmol/L (3.5-5.1); Sodium 138 mmol/L (136-145)
--- NOTE | 2019-12-16 06:12 | PDOC.FM ---
- Subjective Subjective: No events overnight. Notes very minimal SOB - has approx 35 yr hx of 2nd hand smoke. Never smoked herself. No previous dx of COPD. Willing to follow up with PCP for this. RLE pain resolved. BP's remained WNL since home rx. No further complaints. - Objective Vital Signs & Weight: Vital Signs (12 hours) Temp Pulse Resp BP BP Pulse Ox 12/16/19 03:06 98.1 F 57 L 18 141/65 H 95 12/15/19 20:23 97.4 F L 56 L 18 136/73 136/73 94 L Weight Weight 98.566 kg I&O: 12/14/19 12/15/19 12/16/19 06:59 06:59 06:59 Intake Total 1180 Balance 1180 Result Diagrams: 12/16/19 03:21 12/16/19 03:21 Phys Exam - Physical Examination Constitutional: NAD HEENT: moist MMs Neck: full ROM Respiratory: clear to auscultation bilateral Cardiovascular: RRR, no significant murmur Gastrointestinal: soft Musculoskeletal: no edema, pulses present Neurological: moves all 4 limbs Psychiatric: normal affect, A&O x 3 Skin: no rash Dx/Plan - Plan Plan: Hypertensive urgency - Resolved -BP's remained elevated to barely Stage II HTN, no severe range pressures since admission -Had not taken Rx yesterday and was very anxious likely elevated BP RLE swelling/pain, DVT r/o -Dopplers showing flow through RLE, exam not complete due to pt not tolerating compression of common fem and greater saph -Ddimer elevated at 0.5 -CTA neg for PE cHTN -home regimen currently adequate -controlled on 3 antihypertensives, previous mention of working up secondary causes but as now currently controlled when pt compliant with home regimen I do not feel this is indicated Anxiety -home regimen Insomnia -home regimen Hx of CVA -stable neuro exam -home meds HLD -home meds Code: DNR PCP: MARIA TERESA Dispo: Obs. HTN and SOB likely related to Rx non compliance and pt's anxiety. US RLE did not show a DVT but was technically difficult due to pt not tolerating compression. I feel she is stable to be followed as an outpt for this in the setting of no obvious DVT and a negative CTA chest. BP's remaining adequately controlled on home regimen since admission. Plan for DC later today. Addendum - Attending - Attending Attestation Date/Time: 12/16/192119 I personally evaluated the patient and discussed the management with Dr. Hutchins I agree with the History, Examination, Assessment and Plan documented above with any addition or exceptions noted below- Patient without complaints. States that leg pain and SOB have resolved. Afebrile VSS. A/P: 1) Hypertensive urgency - BP much improved; continue home meds. 2) Leg pain- doppler with duron's cyst; pain now resolved. D/c home today.
[2019-12-16] MEDS ORDERED: Atorvastatin Calcium 40 MG TAB PO SCH (09:00)
[2019-12-16] MEDS ORDERED: Lisinopril 20 MG TAB PO SCH (09:00)
[2019-12-16] MEDS ORDERED: Metoprolol Tartrate 25 MG TAB PO SCH (09:00)
[2019-12-16] MEDS ORDERED: Aspirin 81 mg Enteric Coated Tablet PO SCH (09:00)
[2019-12-16] MEDS ORDERED: FLUoxetine HCl 20 MG CAP PO SCH (09:00)
[2019-12-16] MEDS ORDERED: Hydrochlorothiazide 25 MG TAB PO SCH (09:00)
[2019-12-16] MEDS ORDERED: Amlodipine 10 MG TAB PO SCH (09:00)
[2019-12-16] MEDS ORDERED: Escitalopram Oxalate 20 mg Tablet PO SCH (09:00)
[2019-12-16] MEDS ORDERED: Enoxaparin Sodium 40 MG/0.4 ML SYRINGE SC SCH (09:00)
[2019-12-16] MEDS: Gabapentin 300 MG CAP PO SCH (09:52)
[2019-12-16] MEDS: metFORMIN 500 MG TAB PO SCH (09:52)
[2019-12-16] MEDS ORDERED: Acetaminophen 500 MG TAB PO SCH (12:45)
[2019-12-16 15:50] VITALS: BP 134/73; TEMP 97.6
--- NOTE | 2019-12-17 03:12 | DIS ---
DATE OF ADMISSION: 12/15/2019 DATE OF DISCHARGE: 12/16/2019 ADMITTING ATTENDING: Eliu Cardona MD DISCHARGE ATTENDING: Avelina Medley MD. RESIDENT: Vinny Hutchins DO. CONSULTS: None. PROCEDURES: None. IMAGING DATA: Chest x-ray, 12/15/2019. Impression, no acute cardiopulmonary process. Chest CTA, 12/15/2019. Impression, no evidence of pulmonary artery embolism at the level of the segmental arteries. Right lower extremity vascular ultrasound, 12/15/2019. Impression, no occlusive deep vein thrombosis, unable to completely evaluate for nonocclusive thrombosis in the right common femoral and greater saphenous vein due to patient intolerance with exam. Mittal's cyst noted. PRIMARY DIAGNOSES: Right popliteal Mittal's cyst, shortness of breath likely secondary to undiagnosed chronic obstructive pulmonary disease or obesity hypoventilation syndrome, hypertensive urgency. SECONDARY DIAGNOSES,: Chronic hypertension, anxiety, insomnia, history of CVA. DISCHARGE MEDICATIONS: 1. Metformin 500 mg b.i.d. 2. Hydroxyzine 10 mg q.8 hours p.r.n. 3. Oxybutynin 5 mg b.i.d. 4. Metoprolol tartrate 25 mg daily. 5. Lisinopril 40 mg daily. 6. Gabapentin 300 mg b.i.d. 7. Amlodipine 10 mg daily. 8. Hydrochlorothiazide 12.5 mg daily. 9. Ecotrin 81 mg daily. 10. Atorvastatin 40 mg daily. 11. Escitalopram 20 mg daily. 12. Trazodone 25 mg at bedtime. 13. Clopidogrel 75 mg daily. 14. Fluoxetine 40 mg daily. HISTORY OF PRESENT ILLNESS AND HOSPITAL COURSE: A 59-year-old female with history of CVA x3, presents to the ER with complaint of shortness of breath and lower extremity swelling and pain on the right side. The patient was very anxious and tearful on exam. She stated that her right lower extremity pain was most bothersome to her. She stated that it started one day prior to arrival. She denied any trauma, history of smoking, history of blood clots in herself or family. The patient does have an approximately [id number] of secondhand smoke from her ex-. The patient had an echo in July 2019 with an EF of 55%, 1/3 diastolic dysfunction, otherwise normal. Workup in the ED showed her to have a borderline elevated D-dimer of 0.5. CTA of the chest was performed and ruled out any pulmonary embolism. She then had an ultrasound Doppler of her right lower extremity to rule out DVT. The exam showed no occlusive thrombosis of the right lower extremity; however, the patient did not fully tolerate the exam to rule out any nonocclusive clots present. The following day, the patient was feeling much better with only minimally residual shortness of breath and a complete resolution in her right lower extremity pain. The ultrasound of her right lower extremity incidentally showed a Mittal's cyst in her popliteal area. The patient has a history of chronic osteoarthritis in right knee. Denies any known history of Mittal's cyst being present. We discussed these findings with the patient as well as the need for outpatient workup for possible underlying COPD secondary to secondhand smoke as well as possibly addressing her Mittal's cyst if her pain continues to be recurrent in the future. DISCHARGE INSTRUCTIONS: Location: Home. Diet: Heart healthy, diabetic. Activity: As tolerated. Followup: PCP, Dr. Nhi Alicea, within 7 days. Job ID: [id number]
--- NOTE | 2019-12-21 14:25 | EKG ---
Test Reason : Blood Pressure : / mmHG Vent. Rate : 066 BPM Atrial Rate : 066 BPM P-R Int : 258 ms QRS Dur : 080 ms QT Int : 410 ms P-R-T Axes : 047 -31 056 degrees QTc Int : 429 ms Sinus rhythm with 1st degree A-V block with Premature atrial complexes Left axis deviation Moderate voltage criteria for LVH, may be normal variant Nonspecific T wave abnormality Abnormal ECG Confirmed by PRISCA RIVAS M.D. ([id number]), news assignment editor ESTEFANIA CROOK ([id number]) on 12/21/2019 2:25:03 PM Referred By: Confirmed By:PRISCA RIVAS M.D.
== END 2019-12-16 16:33 | disposition home or self-care (01) ==
LOC: ERS 08:36 → 2NO 15:22
PROVIDERS: ADMIT Student in an Organized Health Care Education/Training Program; ATTEND Student in an Organized Health Care Education/Training Program
DX: I16.0 Hypertensive urgency (principal); M71.21 Synovial cyst of popliteal space [Baker], right knee; I10 Essential (primary) hypertension; E11.9 Type 2 diabetes mellitus without complications; F41.0 Panic disorder [episodic paroxysmal anxiety]; G47.00 Insomnia, unspecified; Z79.82 Long term (current) use of aspirin; Z79.84 Long term (current) use of oral hypoglycemic drugs; Z79.899 Other long term (current) drug therapy; Z86.73 Personal history of transient ischemic attack (TIA), and cerebral infarction without residual deficits; Z88.5 Allergy status to narcotic agent
CPT/HCPCS: 71045; 71275; 80048; 80053; 82962 ×2; 83036; 83880; 84484; 85025 ×2; 85379; 85610; 85730; 93005; 93971; 94640; 94664; 96372; 96374; 96375; 99285; G0378 ×3; 36415; 36416; J0360; J1650; J2270; J2405; Q9967

== ENCOUNTER 2021-11-18 22:18 | Emergency (ER) | payer MEDICARE, MEDICAID, OTHER ==
[2021-11-18] MEDS ORDERED: Acetaminophen 500 MG TAB ONE (22:58)
[2021-11-18] MEDS ORDERED: Ketorolac Tromethamine 30 MG/ML VIAL ONE (22:58)
== END 2021-11-19 01:00 | disposition home or self-care (01) ==
LOC: ERS 22:18
DX: R52 Pain, unspecified (principal); E11.9 Type 2 diabetes mellitus without complications; I10 Essential (primary) hypertension; E78.5 Hyperlipidemia, unspecified; E78.00 Pure hypercholesterolemia, unspecified; Z86.73 Personal history of transient ischemic attack (TIA), and cerebral infarction without residual deficits; Z79.899 Other long term (current) drug therapy
CPT/HCPCS: 96374; J1885

== ENCOUNTER 2021-11-25 14:11 | Emergency (ER) | payer MEDICARE, OTHER ==
[2021-11-25] MEDS ORDERED: Ketorolac Tromethamine 30 MG/ML VIAL ONE (15:47)
== END 2021-11-25 16:40 | disposition home or self-care (01) ==
LOC: ERS 14:11
DX: M19.071 Primary osteoarthritis, right ankle and foot (principal); E78.5 Hyperlipidemia, unspecified; I10 Essential (primary) hypertension; E78.00 Pure hypercholesterolemia, unspecified
CPT/HCPCS: 96372; J1885